=== PATIENT | female | born 1960 | race Caucasian/White ===

== ENCOUNTER 2022-10-21 05:09 | Day surgery (SDC) | payer BC, SELFPAY ==
[2022-10-21] VITALS (8 sets, daily range): BP systolic 104–137; BP diastolic 39–71; PULSE 64–94; RESP 16–18; TEMP 36.5–36.8; O2SAT 94–100; BMI 36.1
--- NOTE | 2022-10-21 06:23 | EKG12_ITS ---
Test Reason : PRE-OP Blood Pressure : / mmHG Vent. Rate : 072 BPM Atrial Rate : 072 BPM P-R Int : 182 ms QRS Dur : 076 ms QT Int : 414 ms P-R-T Axes : 045 018 042 degrees QTc Int : 453 ms Normal sinus rhythm Normal ECG No previous ECGs available Confirmed by ASCENCION PATEL, RICARDO ([id number]), photographic editor RUBÉN GOMEZ ([id number]) on 10/25/2022 12:29:59 PM Referred By: Scarlet Jackson Confirmed By:RICARDO VEGAS MD
[2022-10-21] MEDS: Lactated Ringers 1,000 ML 15 ML IV ×2 (06:24→09:31)
[2022-10-21 06:46] LABS: Hematocrit 37.8 % (37-47); Hemoglobin 12.5 g/dL (12.0-15.0); Mean Corp Hgb Conc 33.1 g/dL (32-36); Mean Corpuscular Hgb 28.6 pg (27.0-32.0); Mean Corpuscular Volume 86.5 fL (81-99); Mean Platelet Vol. 10.1 fl (6.2-12.0); Platelet Count 258 K/mm3 (150-450); RBC Distribution Width CV 13.5 % (11.6-14.6); RBC Distribution Width SD 42.5 fl (35.1-43.9); Red Blood Count 4.37 M/mm3 (4.2-5.4); White Blood Count 7.3 K/mm3 (4.4-11.0)
[2022-10-21 06:59] LABS: Anion Gap 6 (5-15); BUN 18 mg/dL (7-18); Calcium,Total 9.3 mg/dL (8.5-10.1); Chloride 100 mmol/L (98-107); Creatinine, Serum 0.67 mg/dL (0.55-1.02); EST Glomerular Filtration Rate 95 mL/min (>60); Est Glom Filt Rate - Afr Amer 115 mL/min (>60); Estimated Creatinine Clearance 78.34 ml/min; Glucose 109 mg/dL (74-106); Potassium 3.7 mmol/L (3.5-5.1); Sodium Level 136 mmol/L (136-145)
--- NOTE | 2022-10-21 07:29 | HP.PCM_ITS ---
History and Physical No changes in physical exam since medical clearance of 10/12/22. 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
--- NOTE | 2022-10-21 07:29 | PCM.HP.BLA ---
History and Physical No changes in physical exam since medical clearance of 10/12/22. 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
[2022-10-21] MEDS: Cefazolin 2 GM in 0.9% Normal Saline 100 ML IV (07:45)
[2022-10-21] MEDS: Lidocaine 1%/Epi 1:200 (30ml) 30 ML AMPUL INFILT (08:30)
[2022-10-21] MEDS: Bupivacaine 0.25% 30 ML Vial (10:20)
--- NOTE | 2022-10-21 10:45 | PCM.OPRPT ---
Problems Associated Problem List Diagnoses (1) Personal history of malignant neoplasm of breast: (2) Acquired absence of breast: Report of Operation Date of Procedure: 10/21/22
--- NOTE | 2022-10-21 10:55 | OP.PCM_ITS ---
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 She had chosen the size of 780 cc during tissue expansion. The potential risk and complications of surgery have been reviewed with her including but not exclusive of bleeding, infection, pain, numbness, asymmetry, scar tissue, need for further surgery, DVT, and even . The patient is marked in the preop holding area prior to surgery. The patient was brought to the operating room and placed under general anesthesia in the supine position. Care is taken to pad all pressure points, insert a Costello catheter, warming blanket, and sequential compression stockings. The breast and chest are prepped and draped in the usual sterile fashion. We initially began with making an approximately 5 cm incision in the left inframammary crease. This is carried down through the subcutaneous tissue until the implant is encountered. The fill tube is identified and tracked to the port which was removed. The implant is then deflated and removed. The pocket is then carefully inspected and found to be as expected with a thin capsule around the previous implant. A capsulotomy is performed on the superior aspect of the pocket using cautery. The area is checked for careful hemostasis. The pocket is also irrigated with antibiotic solution. Laterally, a running Vicryl suture was used to collapse the lateral portion of the pocket in order for the implant to stay centralized. The implant is then prepared on the back table by first checking for leaks. With no leaks being found, the implant is placed in a dilute antibiotic solution until ready for implantation. All air is removed from the implant and the implant and tubing are primed with injectable saline. The pocket is again inspected and with it having a satisfactory appearance, the implant is placed in the pocket carefully to prevent it touching the skin in the adjacent area. It is then inflated to a total of 780 cc of injectable saline. With good position of the implant verified, the fill tube was removed and the plug pushed into position. The incision is then closed in layers by putting [id number] Vicryl sutures to reapproximate the capsule in the inframammary crease, the incision is then closed in 3 layers using a V-Loc suture. Xeroform is placed over the incision along with gauze and fluffs. She is placed in a surgery bra. She tolerated the procedure well and was taken to the recovery area in an awake and stable condition. Needle and sponge counts are correct. Complications none Admit VTE Documentation VTE Mechan Device Prophylaxis: SCD's
== END 2022-10-21 13:08 | disposition home or self-care (01) ==
LOC: SDC 05:13 → AC 05:15
PROVIDERS: Anesthesiology; PCP Family Medicine; Referring Provider Plastic Surgery; Visit Provider Plastic Surgery
PROC: (CPT 11970; principal; 2022-10-21 07:10)
DX: Z90.12 Acquired absence of left breast and nipple (principal); E11.9 Type 2 diabetes mellitus without complications; Z85.3 Personal history of malignant neoplasm of breast; I10 Essential (primary) hypertension; E78.00 Pure hypercholesterolemia, unspecified; Z79.899 Other long term (current) drug therapy
CPT/HCPCS: 11970; 00402; 80048; 85027; 93005; J7120; J2405; Q9968

== ENCOUNTER 2023-08-03 10:02 | Day surgery (SDC) | payer BC, SELFPAY ==
[2023-07-20 11:11] LABS: Hematocrit 40.9 % (37-47); Hemoglobin 13.3 g/dL (12.0-15.0); Mean Corp Hgb Conc 32.5 g/dL (32-36); Mean Corpuscular Volume 86.1 fL (81-99); Mean Platelet Vol. 9.6 fl (6.2-12.0); Platelet Count 290 K/mm3 (150-450); RBC Distribution Width CV 13.6 % (11.6-14.6); RBC Distribution Width SD 42.7 fl (35.1-43.9); Red Blood Count 4.75 M/mm3 (4.2-5.4); White Blood Count 8.8 K/mm3 (4.4-11.0)
[2023-08-03] VITALS (13 sets, daily range): BP systolic 99–147; BP diastolic 49–120; PULSE 66–83; RESP 16–18; TEMP 36.2–36.5; O2SAT 91–100
--- NOTE | 2023-08-03 | BRBX_PTH ---
PATIENT: ISHMAEL SANDOVAL LOC: [facility] [place] U#:[id number] AGE/SX: 63/F ROOM: RE08/03/[address]: Dr. Scarlet Jackson MD : [id number] BED: DIS: 08/03/2023 SPEC #: [id number] RECD: 08/03/23 15:08 STATUS: YANA MURRY #: [id number] JEREMIAH: 08/03/23 00:[address]: Scarlet Jackson DEPT: SURGICAL PATHOLOGY RECD BY: Richard Bear ENTERED: 08/04/23 09:25 SP TYPE: BREAST BX OTHR DR: Franny Madrid MD Tissues: Right breast, NOS Procedures: Surgery Specimen Level IV HEADER OPERATION: Right breast reduction PRE-OP DIAGNOSIS: Breast asymmetry, status post breast reconstruction left, breast hypertrophy TISSUE SUBMITTED: Right breast tissue (556gm) MICROSCOPIC DIAGNOSIS Right breast tissue, breast reduction mammoplasty: Benign breast tissue (556gm). A benign intramammary lymph node (0.5cm in diameter). Focal fibrocystic changes. Negative for atypia or malignancy. WALI/ 08/07/2023 MICROSCOPIC DESCRIPTION Slides are reviewed. GROSS DESCRIPTION A - Received in fixative is one container labeled with the patient's name and designated right breast tissue. The specimen consists of multiple pieces of fibroadipose tissue with a few of the pieces showing oviedo-white skin (556 gm, weighed in OR) measuring in aggregate 24.0 x 17.0 x 6.0 cm. No skin lesion is identified. Sections reveal a nodule measuring 0.5cm in diameter. Sections of the specimen reveal yellow adipose cut surfaces mixed with oviedo-white fibrous area. Animal Husbandry Manager sections are submitted in six cassettes. Cassette 1 contains the skin piece. Cassette 2 contains a nodule, entirely submitted. WALI: 08/04/23 TC:5 CPT: 23392
[2023-08-03] MEDS: Lactated Ringers 1,000 ML 15 ML IV ×2 (10:47→15:49)
--- NOTE | 2023-08-03 11:58 | PCM.HP.BLA ---
History and Physical Date of Admission: 08/03/23 The patient is examined and there are no changes to the H&P dated 07/19/23. Pt for right breast reduction for symmetry following previous left breast reconstruction. Assessment & Plan Assessment/Plan (1) Breast asymmetry between [place] breast and reconstructed breast: (2) S/P breast reconstruction, left: (3) Breast hypertrophy: PLAN: Plan For right breast reduction
[2023-08-03] MEDS: Cefazolin 2 GM in 0.9% Normal Saline (100mL Bag) 100 ML IV (12:18)
[2023-08-03] MEDS: EPINEPHrine Nasal 0.1% 30 ML Bottle OPERA.SITE (12:49)
[2023-08-03] MEDS: Gentamicin 80 MG/2 ML Vial (12:49)
[2023-08-03] MEDS: Methylene Blue 1% 100 MG/10 ML VIAL (12:49)
[2023-08-03] MEDS: Bupivacaine 0.25% 30 ML Vial (14:51)
--- NOTE | 2023-08-03 15:03 | DCINST_ITS ---
Discharge Instructions Dressing / Incision Additional Dressing/Incision Instructions:: Keep your back elevated (recliner position) when laying down. Follow the instructions given in the office. Follow Up Care Please Follow Up With: Scarlet Jackson MD When: In 1 week Test Results: Test results from this visit will be discussed in further detail at your follow- up appointment, if applicable. Discharge Plan Admission Attending Provider: Scarlet Jackson Primary Care Provider: Franny Madrid Discharge Orders/Prescriptions Prescriptions: No Action pravastatin 80 mg tablet 80 mg PO DAILY irbesartan 300 mg tablet 300 mg PO DAILY hydrochlorothiazide 25 mg tablet 25 mg PO DAILY anastrozole 1 mg tablet 1 mg PO DAILY calcium carbonate [Calcium 600] 600 mg calcium (1,500 mg) tablet 1,200 mg PO DAILY cholecalciferol (vitamin D3) 25 mcg (1,000 unit) capsule 25 mcg PO DAILY cephalexin 500 mg capsule 500 mg PO BID Qty: 14 0RF Referrals / Follow Up: Franny Madrid MD [Primary Care Provider] - Disposition Disposition (needs filled in before D/C Order can be placed): Home, Self Care
--- NOTE | 2023-08-03 15:13 | PCM.OPRPT ---
Problems Associated Problem List Diagnoses (1) Breast hypertrophy: (2) Breast asymmetry between upper [place] breast and reconstructed breast: (3) S/P breast reconstruction, left: Report of Operation Date of Procedure: 08/03/23 Pre-Operative Diagnosis: Status post left breast reconstruction following mastectomy for malignancy; breast asymmetry; right breast hypertrophy and ptosis Post-Operative Diagnosis: Same Surgery/Procedure Performed:: Right breast reduction (556 g) Surgeon: Scarlet Jackson driver courier: LEEROY GUEVARAsocial economist Type of Anesthesia: General Specimen's removed: Right breast tissue Drains: None Estimated Blood Loss (mL): 25 cc Description of Procedure: Patient presents for right breast reduction to improve symmetry following previous left breast mastectomy and reconstruction. The procedure been thoroughly reviewed with the patient including the expected pre-, intra, and postoperative course. The potential risk and complications of surgery were reviewed which include but are not exclusive of bleeding, infection, pain, numbness, asymmetry, scar tissue, skin necrosis, the need for further surgery, DVT, and even . She is marked in the preop holding area prior to surgery. The patient was brought to the operating room and placed under general anesthesia in the supine position. Care was taken to pad all pressure points, insert Costello catheter, a warming blanket, and sequential compression stockings. The breasts are prepped and draped in the usual sterile fashion. We initially began with incising the premarked incisions. Following this, the pedicle was de-epithelialized with care to preserve the nipple areola. The inferior medial and lateral aspects of breast are removed using argon coagulation. The pedicle was then from the upper flap and dissection continued cephalad in order to create a pocket for the pedicle to comfortably be accommodated. The upper flap is maintained at least 2 cm in thickness. The wound is then thoroughly irrigated with antibiotic solution and checked for hemostasis which is controlled cautery. Hemoblast is used on the raw surface in order to further aid hemostasis. The breast is then infolded and tacked together using silk suture and skin clips. With a satisfactory size and shape noted we began to close the incisions. The inframammary crease area is closed in 3 layers using a 3-0 STRATAFIX suture. A few Vicryl sutures were also placed in this area for further support. Approximately 4-1/2 cm above the inframammary crease, the nipple areola is brought out through an opening which was made symmetric with the opposite side. The nipple areola is brought out through the opening and tacked in place with interrupted nylon suture. Further approximation of the incision is done with a running subcuticular strata fix suture. The vertical aspect is closed in 2 layers also using a strata fix suture. Quarter percent plain Marcaine is injected along the incisions. The incisions are then dressed with Xeroform and fluff gauze. She is placed in a surgery bra. She tolerated the procedure well was taken to the recovery area in an awakening in stable condition. Needle and sponge counts are correct. Complications None Admit VTE Documentation VTE Mechan Device Prophylaxis: SCD's
== END 2023-08-03 18:08 | disposition home or self-care (01) ==
LOC: SDC 10:03 → AC 10:04
PROVIDERS: Anesthesiology; PCP Family Medicine; Referring Provider Family Medicine; Visit Provider Plastic Surgery
PROC: 0H0U0ZZ Alteration of Left Breast, Open Approach (ICD-10-PCS; CPT 19318; principal; 2023-08-03 11:45)
DX: N65.1 Disproportion of reconstructed breast (principal); E11.9 Type 2 diabetes mellitus without complications; I10 Essential (primary) hypertension; E78.00 Pure hypercholesterolemia, unspecified; Z79.899 Other long term (current) drug therapy; Z90.12 Acquired absence of left breast and nipple; Z85.3 Personal history of malignant neoplasm of breast; Z87.891 Personal history of nicotine dependence
CPT/HCPCS: 19318; 00402; 36415; 85027; 88305; J7120; J2405